=== PATIENT | female | born 1980 | race Caucasian/White ===

== ENCOUNTER 2019-04-27 07:58 | Day surgery (SDC) | payer MEDICAID ==
[2019-04-22 10:00] LABS: ABSOLUTE EOSINOPHILS # (AUTO) 0.2 10^3/uL (0.0-0.6); ABSOLUTE LYMPHOCYTES (AUTO) 0.7 10^3/uL (0.5-4.7); ABSOLUTE MONOCYTES (AUTO) 0.3 10^3/uL (0.1-1.4); ABSOLUTE NEUT (AUTO) 3.1 10^3/uL (1.7-8.2); BASOPHILS % (AUTO) 0.9 % (0-2); EOSINOPHILS % (AUTO) 3.5 % (0-6); HEMATOCRIT 37.6 % (36.0-47.0); LYMPHOCYTES % (AUTO) 16.4 % (13-45); MEAN CORPUSCULAR HEMOGLOBIN 32.5 pg (27.0-33.4); MEAN CORPUSCULAR HGB CONC 34.7 g/dL (32.0-36.0); MEAN CORPUSCULAR VOLUME 94 fl (80-97); MONOCYTES % (AUTO) 7.5 % (3-13); PLATELET COUNT 286 10^3/uL (150-450); RED BLOOD COUNT 4.01 10^6/uL (3.72-5.28); RED CELL DISTRIBUTION WIDTH 14.4 % (11.5-14.0); SEGMENTED NEUTROPHILS % (AUTO) 71.7 % (42-78); TOTAL CELLS COUNTED % (AUTO) 100 %; WHITE BLOOD COUNT 4.3 10^3/uL (4.0-10.5)
[2019-04-22 10:25] LABS: ANION GAP 8 (5-19); BLOOD UREA NITROGEN 7 mg/dL (7-20); CALCIUM 8.6 mg/dL (8.4-10.2); CARBON DIOXIDE 25 mmol/L (22-30); CHLORIDE 107 mmol/L (98-107); GLUCOSE 103 mg/dL (75-110); POTASSIUM 4.1 mmol/L (3.6-5.0)
[2019-04-22 12:27] LABS: ALBUMIN 3.9 g/dL (3.5-5.0); ALKALINE PHOSPHATASE 87 U/L (38-126); ASPARTATE AMINO TRANSFERASE 22 U/L (14-36); BILIRUBIN,DIRECT 0.2 mg/dL (0.0-0.4); BILIRUBIN,TOTAL 0.3 mg/dL (0.2-1.3); TOTAL PROTEIN 6.5 g/dL (6.3-8.2)
[~2019-04-27 07:58] MED LIST: CEFAZOLIN 1 GM/D5W RTU 1 GM/50 ML RTUPB IV PRN; LACTATED RINGERS 1000 ML IV PRN; LIDOCAINE 0.5% INJ-PF (5 MG/ML) 50 ML SDV SUBCUT PRN; LIDOCAINE 1% INJ-PF (10 MG/ML) 30 ML SDV ONE
[2019-04-27] MEDS ORDERED: CEFAZOLIN 1 GM/D5W RTU 1 GM/50 ML RTUPB IV ONE (08:28)
[2019-04-27 08:43] LABS: APPEARANCE,URINE CLEAR; BILIRUBIN,URINE NEGATIVE (NEGATIVE); COLOR,URINE YELLOW; GLUCOSE, URINE NEGATIVE (NEGATIVE); KETONES,URINE NEGATIVE (NEGATIVE); LEUKOCYTE ESTERASE,URINE NEGATIVE (NEGATIVE); NITRITE,URINE NEGATIVE (NEGATIVE); PROTEIN,URINE NEGATIVE (NEGATIVE); URINE SPECIFIC GRAVITY 1.018; UROBILINOGEN,URINE NEGATIVE mg/dL (<2.0)
[2019-04-27] MEDS ORDERED: LIDOCAINE 2% INJ-PF (100 MG/5 ML) SYRINGE ONE (08:54)
[2019-04-27] MEDS ORDERED: FENTANYL CITRATE INJ/PF 100 MCG/2 ML AMPUL ONE (08:54)
[2019-04-27] MEDS ORDERED: DEXAMETHASONE SOD PHOSPHATE INJ 4 MG/1 ML VIAL ONE (08:55)
[2019-04-27] MEDS ORDERED: PROPOFOL INJ 200 MG/20 ML VIAL IV ONE (08:55)
[2019-04-27] MEDS ORDERED: ONDANSETRON HCL INJ/PF 4 MG/2 ML SDV ONE (08:55)
[2019-04-27] MEDS ORDERED: MIDAZOLAM 2 MG/2 ML INJ ONE (08:55)
[2019-04-27] MEDS ORDERED: ACETAMINOPHEN 1,000 MG/100 ML RTUPB IV ONE (09:21)
[2019-04-27] MEDS ORDERED: OXYCODONE-ACETAMINOPHEN 5-325 MG TABLET PO PRN ×4 (09:53→11:00)
[2019-04-27] MEDS ORDERED: PROMETHAZINE HCL INJ 25 MG/1 ML VIAL IV PRN ×2 (09:53→10:46)
[2019-04-27] MEDS ORDERED: MEPERIDINE HCL/PF INJ 25 MG/1 ML DISP.SYRIN IV PRN (09:53)
[2019-04-27] MEDS ORDERED: DIPHENHYDRAMINE HCL 50 MG/ML VIAL IV PRN (09:53)
[2019-04-27] MEDS ORDERED: ONDANSETRON HCL INJ/PF 4 MG/2 ML SDV IV PRN (09:53)
[2019-04-27] MEDS ORDERED: FENTANYL CITRATE INJ/PF 100 MCG/2 ML AMPUL IV PRN ×3 (09:53)
[2019-04-27] MEDS ORDERED: MORPHINE SULFATE 10 MG/ML INJ IV PRN (09:53)
--- NOTE | 2019-04-27 10:17 | Operative Report ---
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 Patient was then inducted under general anesthesia. Patient was prepped and dominique ped in a sterile fashion after repositioning in a dorsolithotomy position. After timeout the bladder was drained of approximately 50 cc of clear yellow urine. Pelvic under anesthesia was performed with normal findings. Weighted vaginal speculum was inserted then. Cervix is grasped on its anterior lip with a single-tooth tenaculum and an Allis clamp. Uterus was sounded to 10 cm. Cervix endocervical length was 4 cm. Cervix was dilated with Hegar dilators to a #8. Using a #8 suction probe the contents of the endometrial cavity were removed. A hysteroscopy was then performed with normal findings. NovaSure equipment was then opened up. NovaSure was inserted through the endocervix into the endometrial cavity and then opened up. Measurements gave us a cavity length of 6 cm the cavity we with a 4.4 cm the NovaSure was then empowered and turned on. Burn time was 1 minute power level was 145. Sure was closed and removed. Hysteroscope was then carried out with normal saline. There was a good cavity burn. The excess saline was then suctioned out. The other equipment was removed. There was no evidence of active bleeding. Anesthesia was then discontinued. Patient was put back in the supine position. And transferred to the recovery room in satisfactory condition of note power was 145 length was 6.0 width was 4.4 time was 1 minute
[2019-04-27] MEDS ORDERED: OXYCODONE-ACETAMINOPHEN 5-325 MG TABLET ONE (10:50)
[2019-04-27 12:03] VITALS: BP 113/73
== END 2019-04-27 11:50 | disposition home or self-care (01) ==
LOC: OROUT 07:58
PROVIDERS: ATTEND Obstetrics & Gynecology
DX: N93.8 Other specified abnormal uterine and vaginal bleeding (principal); N92.1 Excessive and frequent menstruation with irregular cycle; D64.9 Anemia, unspecified; Z79.899 Other long term (current) drug therapy; N92.0 Excessive and frequent menstruation with regular cycle; E03.9 Hypothyroidism, unspecified
CPT/HCPCS: 36415; 84443; 85025; 81025; 80053; 81001; 88305 ×2; 58563; J2250; J0690; J1100; J3010; J2001; J2405; J2704; J0131; J3490

== ENCOUNTER 2019-09-25 08:23 | Day surgery (SDC) | payer MEDICAID ==
[2019-09-22 09:34] LABS: HEMATOCRIT 41.5 % (36.0-47.0); HEMOGLOBIN 14.6 g/dL (12.0-15.5); MEAN CORPUSCULAR HEMOGLOBIN 35.1 pg (27.0-33.4); MEAN CORPUSCULAR VOLUME 100 fl (80-97); PLATELET COUNT 219 10^3/uL (150-450); RED BLOOD COUNT 4.15 10^6/uL (3.72-5.28); RED CELL DISTRIBUTION WIDTH 13.5 % (11.5-14.0); WHITE BLOOD COUNT 5.6 10^3/uL (4.0-10.5)
[2019-09-22 09:53] LABS: ALBUMIN 4.2 g/dL (3.5-5.0); ALKALINE PHOSPHATASE 83 U/L (38-126); ANION GAP 5 (5-19); ASPARTATE AMINO TRANSFERASE 17 U/L (14-36); BILIRUBIN,TOTAL 0.4 mg/dL (0.2-1.3); BLOOD UREA NITROGEN 12 mg/dL (7-20); CARBON DIOXIDE 24 mmol/L (22-30); CHLORIDE 108 mmol/L (98-107); GLUCOSE 105 mg/dL (75-110); POTASSIUM 4.1 mmol/L (3.6-5.0); TOTAL PROTEIN 6.7 g/dL (6.3-8.2)
[~2019-09-25 08:23] MED LIST changes: +ACETAMINOPHEN 1,000 MG/100 ML RTUPB IV PRN; -CEFAZOLIN 1 GM/D5W RTU 1 GM/50 ML RTUPB IV PRN; -LIDOCAINE 1% INJ-PF (10 MG/ML) 30 ML SDV ONE; +METRONIDAZOLE 500 MG/NS RTU 500 MG/100 ML RTUPB IV PRN
[2019-09-25] MEDS ORDERED: METRONIDAZOLE 500 MG/NS RTU 500 MG/100 ML RTUPB IV ONE (09:36)
[2019-09-25] MEDS ORDERED: ACETAMINOPHEN 1,000 MG/100 ML RTUPB IV ONE (09:42)
[2019-09-25] MEDS ORDERED: MORPHINE SULFATE 10 MG/ML INJ IV PRN (11:08)
[2019-09-25] MEDS ORDERED: FENTANYL CITRATE INJ/PF 100 MCG/2 ML AMPUL IV PRN ×3 (11:08)
[2019-09-25] MEDS ORDERED: PROMETHAZINE HCL INJ 25 MG/1 ML VIAL IV PRN (11:08)
[2019-09-25] MEDS ORDERED: MEPERIDINE HCL/PF INJ 25 MG/1 ML DISP.SYRIN IV PRN (11:08)
[2019-09-25] MEDS ORDERED: DIPHENHYDRAMINE HCL 50 MG/ML VIAL IV PRN (11:08)
[2019-09-25] MEDS ORDERED: FENTANYL CITRATE INJ/PF 100 MCG/2 ML AMPUL ONE ×2 (11:39→11:40)
[2019-09-25] MEDS ORDERED: PROPOFOL INJ 200 MG/20 ML VIAL IV ONE (11:39)
[2019-09-25] MEDS ORDERED: ONDANSETRON HCL INJ/PF 4 MG/2 ML SDV ONE (11:39)
[2019-09-25] MEDS ORDERED: MIDAZOLAM 2 MG/2 ML INJ ONE (11:39)
[2019-09-25] MEDS ORDERED: DEXAMETHASONE SOD PHOSPHATE INJ 4 MG/1 ML VIAL ONE (11:39)
[2019-09-25] MEDS ORDERED: BACITRACIN INJ 50,000 UNIT VIAL ONE (11:40)
[2019-09-25] MEDS ORDERED: BUPIVACAINE INJ/PF LIPOSOME/PF 266 MG/20 ML SDV ONE (11:40)
[2019-09-25] MEDS ORDERED: LIDOCAINE 2% JELLY 30 ML TUBE ONE (11:40)
[2019-09-25] MEDS ORDERED: BACITRACIN ZINC OINTMENT 15 GM ONE (11:41)
[2019-09-25] MEDS: MORPHINE SULFATE 10 MG/ML INJ ONE ×2 (13:10→13:15)
[2019-09-25] MEDS: MEPERIDINE HCL/PF INJ 25 MG/1 ML DISP.SYRIN ONE ×2 (13:13→13:18)
--- NOTE | 2019-09-25 13:15 | Discharge Summary ---
Discharge Summary (SDC) - Discharge Final Diagnosis: Rectal bleeding, anemia, hemorrhoids. Date of Surgery: 09/25/19 Discharge Date: 09/25/19 Condition: Stable Treatment or Instructions: Discharge home. Diet as tolerated. Activity: Nonstrenuous. Follow-up with [facility] in 7 to 10 days. Warm, soapy sits baths 3 times daily and after bowel movements. [place] 10/325 mg p.o. every 6 hours as needed for pain. 5% lidocaine ointment to rectum 3 times daily. Neosporin ointment to rectum 3 times daily. Fiber and stool softeners twice daily. Prescriptions: Hydrocodone/Acetaminophen [[place] 10-325 mg Tablet] 1 tab PO Q6HP PRN #28 tablet PRN Reason: For Pain Referrals: PATO PRYOR MD [Primary Care Provider] - Discharge Diet: As Tolerated Respiratory Treatments at Home: Deep Breathing/Coughing, Incentive Spirometer Discharge Activity: Activity As Tolerated, Balance Activity w/Rest Report the Following to Your Physician Immediately: Shortness of Breath, Nausea, Vomiting, Increase in Pain, Fever over 101 Degrees, Unusual Bleeding, Redness
[2019-09-25] MEDS ORDERED: HYDROCODONE/ACETAMINOPHEN 10-325 MG TABLET PO PRN (13:16)
[2019-09-25] MEDS ORDERED: PROMETHAZINE HCL INJ 25 MG/1 ML VIAL ONE (13:56)
[2019-09-25] MEDS ORDERED: HYDROCODONE/ACETAMINOPHEN 5-325 MG TABLET ONE (14:00)
[2019-09-25] MEDS ORDERED: HYDROCODONE/ACETAMINOPHEN 10-325 MG TABLET ONE (14:01)
[2019-09-25] MEDS ORDERED: SUCCINYLCHOLINE CHLORIDE INJ 200 MG/10 ML VIAL ONE (14:06)
[2019-09-25 15:25] VITALS: BP 128/72
--- NOTE | 2019-09-28 08:24 | Operative Report ---
Nonrecallable Operative Report DATE OF SURGERY: 09/25/19 PREOPERATIVE DIAGNOSIS: Prolapsing internal, and external hemorrhoids POSTOPERATIVE DIAGNOSIS: Prolapsing internal, and external hemorrhoids. The worst of these were positioned in the right anterior and right posterior columns. OPERATION: 1. 2 column hemorrhoidectomy (right anterior and right posterior positions). 2. Rubber band ligation of internal hemorrhoids in the left lateral position. SURGEON: ROB RANGEL ANESTHESIA: GA TISSUE REMOVED OR ALTERED: Right anterior and right posterior hemorrhoid columns COMPLICATIONS: None apparent ESTIMATED BLOOD LOSS: Minimal PROCEDURE: Drains/implants: None. Procedure in detail: After informed consent was obtained, the patient was brought to the operating room and laid in the prone jackknife position. The area of the anus and rectum were prepped and draped in a normal sterile fashion. 20 cc of Exparel was used to anesthetize the skin surrounding the anus (anal block). Next, a Hill-Rausch retractor was inserted. The patient's hemorrhoids were inspected. They were largest in the right anterior and right posterior columns. The right anterior and right posterior hemorrhoid columns were then excised using electrocautery. The resulting defects were closed using 3-0 chromic suture in simple running fashion. Great care was taken to reapproximate mucosa to mucosa, anoderm to anoderm, and skin to skin. Once this was completed, the anus was inspected. It admitted 2 fingers easily. The left lateral column was inspected. There was internal hemorrhoidal tissue present in the left lateral column. The rubber band ligation device was used to ligate hemorrhoids in the left lateral position. Once this was completed, the procedure was concluded. A dressing was placed. All sponge, instrument, and needle counts were correct x2. Condition: Stable.
== END 2019-09-25 15:20 | disposition home or self-care (01) ==
LOC: OROUT 08:23
PROVIDERS: ATTEND Surgery
DX: K64.9 Unspecified hemorrhoids (principal); D64.9 Anemia, unspecified; E07.9 Disorder of thyroid, unspecified; Z79.899 Other long term (current) drug therapy; K64.4 Residual hemorrhoidal skin tags; K64.8 Other hemorrhoids; Z87.442 Personal history of urinary calculi; Z87.892 Personal history of anaphylaxis; Z03.818 Encounter for observation for suspected exposure to other biological agents ruled out
CPT/HCPCS: 36415; 85027; 87635; 81025; 80053; 88304 ×2; 00902; 46945; J2250; J3490 ×3; J1100; J3010; J2175; J2270; J2550; J0330; J2405; J2704; J0131; C9290; C9803; 902